=== PATIENT | female | born 1945 | race Caucasian/White ===

== ENCOUNTER → 2024-01-01 16:59 | Outpatient (REF) | payer MEDICARE, SELFPAY | LOC: WDC 16:59 | PROVIDERS: ATTENDING PHYSICIAN Nurse Practitioner Adult Health | DX: Z12.31 Encounter for screening mammogram for malignant neoplasm of breast (principal) | CPT/HCPCS: 77063; 77067 ==

== ENCOUNTER → 2024-01-08 10:25 | Outpatient (REF) | payer MEDICARE, SELFPAY | LOC: WDC 10:25 | PROVIDERS: ATTENDING PHYSICIAN Nurse Practitioner Adult Health | DX: R92.8 Other abnormal and inconclusive findings on diagnostic imaging of breast (principal) | CPT/HCPCS: 76642 ==

== ENCOUNTER → 2024-08-16 17:18 | Outpatient (REF) | payer MEDICARE, SELFPAY | LOC: RAD 17:18 | PROVIDERS: ATTENDING PHYSICIAN Nurse Practitioner Adult Health | DX: L03.115 Cellulitis of right lower limb (principal); M25.571 Pain in right ankle and joints of right foot | CPT/HCPCS: 73610 ==

== ENCOUNTER → 2025-01-05 12:04 | Outpatient (REF) | payer MEDICARE, SELFPAY | LOC: WDC 12:04 | PROVIDERS: ATTENDING PHYSICIAN Nurse Practitioner Adult Health | DX: Z12.31 Encounter for screening mammogram for malignant neoplasm of breast (principal) | CPT/HCPCS: 77063; 77067 ==

== ENCOUNTER → 2025-04-26 12:02 | Outpatient (REF) | payer MEDICARE, SELFPAY | LOC: RAD 12:02 | PROVIDERS: ATTENDING PHYSICIAN Nurse Practitioner Adult Health | DX: Z00.00 Encounter for general adult medical examination without abnormal findings (principal); Z78.0 Asymptomatic menopausal state | CPT/HCPCS: 77080 ==